=== PATIENT | male | born 1985 | race Two or more races ===

== ENCOUNTER 2017-05-02 08:22 | Emergency (ER) | payer MEDICAID ==
[~2017-05-02] VITALS: Ht 175.3 cm; Wt 80.0 kg
[2017-05-02] MEDS ORDERED: HYDROCODONE/ACETAMINOPHEN 10/325MG TABLET PO ONE (10:30)
[2017-05-02] MEDS ORDERED: KETOROLAC 30MG/ML VIAL IM ONE (10:30)
[2017-05-02 13:05] VITALS: BP 137/78
== END 2017-05-02 13:45 | disposition home or self-care (01) ==
LOC: ER 08:30
DX: M54.42 Lumbago with sciatica, left side (principal); J45.909 Unspecified asthma, uncomplicated
CPT/HCPCS: 73502; 96372; 99284; J1885; Z7610

== ENCOUNTER 2017-09-25 20:07 | Emergency (ER) | payer MEDICAID ==
[~2017-09-25] VITALS: Ht 170.2 cm; Wt 150.0 kg
[2017-09-26] MEDS ORDERED: ACETAMINOPHEN 500MG TABLET PO ONE (00:45)
[2017-09-26] MEDS ORDERED: KETOROLAC 15MG/ML VIAL IM ONE (00:45)
[2017-09-26] MEDS ORDERED: ASPIRIN 81MG TABLET PO ONE (01:15)
[2017-09-26 01:33] LABS: BASOPHILS % 0.6 % (0.0-2.0); EOSINOPHILS % 0.9 % (0.0-5.0); HEMATOCRIT. 40.1 % (42.0-52.0); HEMOGLOBIN. 13.5 g/dL (14.0-18.0); LYMPHOCYTES % 18.4 % (20.0-50.0); MEAN CORPUSCULAR VOLUME 92.1 fL (80.0-94.0); MEAN PLATELET VOLUME 7.8 fl (7.4-10.4); MONOCYTES % 7.8 % (2.0-8.0); NEUTROPHILS % 72.3 % (40.0-76.0); PLATELET 245 x1000/uL (130-400); RED BLOOD CELL COUNT 4.35 mill/uL (4.7-6.1); RED CELL DISTRIBUTION WIDTH 13.3 % (11.6-14.6)
[2017-09-26 03:33] LABS: CHLORIDE 108 mEq/L (98-107)
[2017-09-26 04:00] VITALS: BP 105/59
[2017-09-26] MEDS ORDERED: IBUPROFEN 400MG TABLET ONE (04:42)
== END 2017-09-26 05:50 | disposition home or self-care (01) ==
LOC: ER 20:07
DX: M54.41 Lumbago with sciatica, right side (principal); R55 Syncope and collapse; J45.909 Unspecified asthma, uncomplicated; F17.200 Nicotine dependence, unspecified, uncomplicated; X50.1XXA Overexertion from prolonged static or awkward postures, initial encounter; Y93.39 Activity, other involving climbing, rappelling and jumping off; Y92.480 Sidewalk as the place of occurrence of the external cause; Y99.8 Other external cause status
CPT/HCPCS: 36415; 71046; 80053; 83690; 84484; 85025; 93005; 96372; 99285; J1885